=== PATIENT | female | born 1995 | race Two or more races ===

== ENCOUNTER 2025-01-27 19:21 | Emergency (ER) | payer MEDICAID ==
[~2025-01-27] VITALS: Ht 167.6 cm; Wt 79.4 kg
[2025-01-27] MEDS ORDERED: doxycycline (19:45)
[2025-01-27] MEDS ORDERED: FLUCONAZOLE 100 MG TABLET ONE (20:21)
[2025-01-27] MEDS: FLUCONAZOLE 100 MG TABLET PO ONE (20:24)
[2025-01-27] MEDS ORDERED: METRONIDAZOLE 500 MG TABLET ONE (21:10)
[2025-01-27] MEDS ORDERED: ONDANSETRON ODT 4 MG TAB.RAPDIS ONE (21:10)
[2025-01-27] MEDS: ONDANSETRON ODT 4 MG TAB.RAPDIS SL ONE (21:22)
[2025-01-27] MEDS: METRONIDAZOLE 500 MG TABLET PO ONE (21:22)
[2025-01-27 21:23] VITALS: BP 112/74; TEMP 98.5; O2SAT 99
== END 2025-01-27 21:24 | disposition home or self-care (01) ==
LOC: ER 19:56
DX: A59.01 Trichomonal vulvovaginitis (principal)
CPT/HCPCS: 87210; A4606; A4663; Q0162

== ENCOUNTER 2025-04-13 22:37 | Emergency (ER) | payer MEDICAID ==
[~2025-04-13] VITALS: Ht 167.6 cm; Wt 81.6 kg
[~2025-04-13 22:37] MED LIST: doxycycline
[2025-04-14] MEDS ORDERED: DICL100G26 TP (01:42)
[2025-04-14 02:05] LABS: BASOPHILS # (AUTO) 0.1 K/UL (0.0-0.2); BASOPHILS % (AUTO) 0.8 % (0.0-2.0); DIFFERENTIAL COMMENT 1; EOSINOPHILS # (AUTO) 0.3 K/uL (0.0-0.7); EOSINOPHILS % (AUTO) 3.2 % (0.0-7.0); HEMATOCRIT 38.2 % (31.2-41.9); HEMOGLOBIN 13.3 g/dL (10.9-14.3); LYMPHOCYTES # (AUTO) 3.2 K/uL (0.8-4.8); LYMPHOCYTES % (AUTO) 32.3 % (20.5-51.5); MEAN CORPUSCULAR HEMOGLOBIN 28.5 uug (24.7-32.8); MEAN CORPUSCULAR HGB CONC 35 g/dL (32.3-35.6); MEAN CORPUSCULAR VOLUME 81.6 fL (75.5-95.3); MONOCYTES # (AUTO) 0.7 K/uL (0.1-1.30); MONOCYTES % (AUTO) 6.8 % (0.0-11.0); NEUTROPHILS # (AUTO) 5.7 K/uL (1.8-8.9); NEUTROPHILS % (AUTO) 56.9 % (38.5-71.5); PLATELET COUNT (AUTO) 308 K/uL (179-408); RED BLOOD CELL COUNT(AUTO) 4.69 MIL/uL (3.63-4.92); WHITE BLOOD COUNT (AUTO) 9.9 K/uL (3.8-11.8)
[2025-04-14 02:08] LABS: CREATININE 0.7 mg/dL (0.6-1.3); POTASSIUM 3.7 mmol/L (3.5-5.1)
[2025-04-14 02:09] LABS: C-REACTIVE PROTEIN 0.16 mg/dL (0.00-0.30)
[2025-04-14] MEDS ORDERED: IOHEXOL 350 100 ML INFUS..BTL ONE (03:12)
[2025-04-14 05:35] VITALS: BP 131/89; TEMP 98; O2SAT 98
== END 2025-04-14 05:38 | disposition home or self-care (01) ==
LOC: ER 22:42
DX: M79.661 Pain in right lower leg (principal); R07.89 Other chest pain; R60.0 Localized edema
CPT/HCPCS: 99285; 71275; 93971; 80048; 85025; 85379; 86140; 84484; 36415; 93005; Q9967; A4606; A4663

== ENCOUNTER 2025-04-25 09:08 | Emergency (ER) | payer MEDICAID ==
[~2025-04-25] VITALS: Ht 167.6 cm; Wt 81.6 kg
[~2025-04-25 09:08] MED LIST changes: +DICL100G26 TP
[2025-04-25 09:29] LABS: *BILIRUBIN,URIN NEGATIVE (NEGATIVE); *BLOOD, URINE NEGATIVE (NEGATIVE); *CLARITY,URINE CLEAR (CLEAR); *COLOR,URINE YELLOW (YELLOW); *KETONES,URINE NEGATIVE (NEGATIVE); *PROTEIN,URINE NEGATIVE (NEGATIVE); *UROBILINOGEN,URINE 0.2 E.U./dl (NORMAL); LEUKOCYTE ESTERASE ,URINE TRACE (NEGATIVE); NITRITE, URINE NEGATIVE (NEGATIVE); UGLUCOSE NEGATIVE (NEGATIVE)
[2025-04-25 09:34] LABS: BACTERIA,URINE FEW /HPF (NONE SEEN); SQUAMOUS EPITHELIAL CELL,UR FEW /HPF (NONE SEEN)
[2025-04-25 09:35] LABS: *URINE HCG, QUAL NEGATIVE (NEGATIVE)
[2025-04-25 09:53] LABS: BASOPHILS % (AUTO) 0.6 % (0.0-2.0); EOSINOPHILS # (AUTO) 0.2 K/uL (0.0-0.7); EOSINOPHILS % (AUTO) 2.8 % (0.0-7.0); HEMOGLOBIN 13.2 g/dL (10.9-14.3); LYMPHOCYTES # (AUTO) 1.9 K/uL (0.8-4.8); MEAN CORPUSCULAR HEMOGLOBIN 28.1 uug (24.7-32.8); MEAN CORPUSCULAR HGB CONC 34 g/dL (32.3-35.6); MEAN CORPUSCULAR VOLUME 82.8 fL (75.5-95.3); MONOCYTES # (AUTO) 0.4 K/uL (0.1-1.30); MONOCYTES % (AUTO) 5.6 % (0.0-11.0); NEUTROPHILS # (AUTO) 4.2 K/uL (1.8-8.9); PLATELET COUNT (AUTO) 294 K/uL (179-408); RED BLOOD CELL COUNT(AUTO) 4.71 MIL/uL (3.63-4.92); RED CELL DISTRIBUTION WIDTH 13.1 % (12.3-17.7); WHITE BLOOD COUNT (AUTO) 6.7 K/uL (3.8-11.8)
[2025-04-25 10:00] LABS: CALCIUM 9.8 mg/dL (8.5-10.1); CARBON DIOXIDE 27 mmol/L (21-32); CHLORIDE 104 mmol/L (98-107); CREATININE 0.8 mg/dL (0.6-1.3); GLUCOSE 107 mg/dL (74-106); POTASSIUM 3.6 mmol/L (3.5-5.1); SODIUM SERUM 141 mmol/L (136-145); UREA NITROGEN, BLOOD 11 mg/dL (7-18)
[2025-04-25 10:03] LABS: DIFFERENTIAL COMMENT 1
[2025-04-25 10:06] LABS: ALANINE AMINOTRANSFERASE 29 U/L (14-59); ALBUMIN 4.4 g/dL (3.4-5.0); ALKALINE PHOSPHATASE 91 U/L (50-136); ASPARTATE AMINOTRANSFERASE 24 U/L (15-37); BILIRUBIN,DIRECT 0.2 mg/dL (0.0-0.2); BILIRUBIN,TOTAL 0.8 mg/dL (0.2-1.0); LIPASE 30 U/L (16-77); TOTAL PROTEIN, SERUM 8.4 g/dL (6.4-8.2)
[2025-04-25 10:15] LABS: PREGNANCY TEST SERUM QUAN < 1 miul/L (0-6)
[2025-04-25] MEDS ORDERED: METOCLOPRAMIDE HCL 10 MG/2 ML VIAL ONE (11:00)
[2025-04-25] MEDS ORDERED: KETOROLAC TROMETHAMINE 15 MG INJ ONE (11:00)
[2025-04-25] MEDS: METOCLOPRAMIDE HCL 10 MG/2 ML VIAL IV ONE (11:04)
[2025-04-25] MEDS: KETOROLAC TROMETHAMINE 15 MG INJ IVP ONE (11:04)
[2025-04-25 11:10] VITALS: BP 110/77; TEMP 97.9; O2SAT 97
== END 2025-04-25 11:12 | disposition home or self-care (01) ==
LOC: ER 09:08
DX: R10.31 Right lower quadrant pain (principal); I88.0 Nonspecific mesenteric lymphadenitis; R30.0 Dysuria; R35.0 Frequency of micturition; R10.2 Pelvic and perineal pain; R07.9 Chest pain, unspecified
CPT/HCPCS: 99285; 74176; 96374; 76856; 71045; 96375; 80076; 80048; 81001; 84703; 83690; 85025; 87086; 84484; 84702; 36415; 93005; J1885; J2765; A4606; A4663